=== PATIENT | female | born 1980 | race Caucasian/White ===

== ENCOUNTER 2020-03-12 10:08 | Outpatient (CLI) | payer OTHER, SELFPAY ==
[2020-03-12 10:28] LABS: Hematocrit 40.3 % (37.0-47.0); Hemoglobin 13.9 g/dL (12.0-15.0); Mean Corpuscular HGB Conc 34.5 g/dl (32-36); Mean Corpuscular Hemoglobin 35.9 pg (26-34); Mean Corpuscular Volume 104.1 fl (80-100); Mean Platelet Volume 9.8 fl (7.4-10.4); Platelet Count Result 210 k/mm3 (150-375); Red Blood Count 3.87 M/mm3 (4.2-5.4); Red Cell Distribution Width 11.5 % (11.5-14.5); White Blood Count 7.5 K/mm3 (4.5-10.0)
[2020-03-12 10:47] LABS: Alanine Aminotransferase 23 U/L (4-35); Albumin Level 4.6 g/dL (3.5-5.1); Alkaline Phosphatase 52 U/L (38-126); Anion Gap 9 mmol/L (8-16); Aspartate Amino Transferase 27 U/L (14-36); Blood Urea Nitrogen 13 mg/dL (7-17); Calcium 9.3 mg/dL (8.4-10.2); Carbon Dioxide 28 mmol/L (22-30); Chloride 102 mmol/L (98-107); Cholesterol 202 mg/dL (0-200); Estimated Glomerular Filt Rate > 60; Glucose 104 mg/dL (65-105); HDL Direct 73 mg/dL; Potassium 4.5 mmol/L (3.4-5.0); Sodium 139 mmol/L (137-145); Triglycerides 111 mg/dL (<150)
[2020-03-12 10:59] LABS: LDL Cholesterol Direct 110 mg/dL
[2020-03-12 11:54] LABS: Folic Acid > 20.0 ng/mL (2.76->20)
== END 2020-03-12 10:09 | disposition home or self-care (01) ==
PROVIDERS: PCP Physician Assistant; Visit Provider Physician Assistant
DX: E55.9 Vitamin D deficiency, unspecified (principal)
CPT/HCPCS: 36415; 80053; 80061; 82306; 82607; 82746; 84443; 85027

== ENCOUNTER 2020-11-24 12:53 | Outpatient (CLI) | payer OTHER, SELFPAY ==
--- NOTE | ~2020-11-24 | MMUS_ITS ---
EXAMINATION: MM diagnostic ramya BI w yamil, US axilla RT HISTORY: Palpable right axillary lump TECHNIQUE: Additional 3-D tomosynthesis images of the breasts were performed and synthetic 2-D images were generated. CAD analysis was submitted and interpreted. High resolution right axillary ultrasoun d was performed. COMPARISON: None BREAST PARENCHYMAL COMPOSITION: Breast composed of scattered areas of fibroglandular density FINDINGS: MAMMOGRAPHIC FINDINGS: There are no suspicious masses, calcifications or architectural distortion in either breast to sugges t malignancy. ULTRASOUND: Right axillary ultrasound: Normal heterogeneous echotexture without focal solid or cystic mass. IMPRESSION: 1. No evidence for malignancy in either breast. No right axillary abnormalities are identified. 2. Routine yearly screening mammogram and regular clinical breast examination are recommended. BI-RADS Category 1: Negative Reviewed, dictated and finalized at location A. IMPRESSION: 1. No evidence for malignancy in either breast. No right axillary abnormalities are identified. 2. Routine yearly screening mammogram and regular clinical breast examination a re recommended. BI-RADS Category 1: Negative
== END 2020-11-24 12:54 | disposition home or self-care (01) ==
LOC: ANHIMG 12:55
PROVIDERS: PCP Physician Assistant; Visit Provider Obstetrics & Gynecology
DX: M79.89 Other specified soft tissue disorders (principal); N63.10 Unspecified lump in the right breast, unspecified quadrant
CPT/HCPCS: 76882; 77062; 77066; G0279

== ENCOUNTER 2022-03-09 11:47 | Outpatient (CLI) | payer OTHER, SELFPAY ==
[2022-03-09 12:32] LABS: Influenza Control Positive
== END 2022-03-09 11:48 | disposition home or self-care (01) ==
LOC: ANHLAB 11:49
PROVIDERS: PCP Physician Assistant; Visit Provider Physician Assistant
DX: J02.9 Acute pharyngitis, unspecified (principal)
CPT/HCPCS: 87081; 87804; 87880

== ENCOUNTER 2022-03-21 09:21 | Outpatient (CLI) | payer OTHER, SELFPAY ==
[2022-03-21 09:54] LABS: Hematocrit 41.8 % (37.0-47.0); Hemoglobin 14.3 g/dL (12.0-15.0); Mean Corpuscular HGB Conc 34.2 g/dl (32-36); Mean Corpuscular Hemoglobin 35.8 pg (26-34); Mean Corpuscular Volume 104.5 fl (80-100); Mean Platelet Volume 9.3 fl (7.4-10.4); Platelet Count Result 277 k/mm3 (150-375); Red Cell Distribution Width 12.4 % (11.5-14.5); White Blood Count 7.8 K/mm3 (4.5-10.0)
[2022-03-21 10:18] LABS: Vitamin D 25 Hydroxy 36.5 ng/mL
[2022-03-21 11:06] LABS: Alanine Aminotransferase 23 U/L (6-35); Albumin Level 4.9 g/dL (3.5-5.1); Alkaline Phosphatase 85 U/L (38-126); Anion Gap 11 mmol/L (8-16); Aspartate Amino Transferase 33 U/L (14-36); Bilirubin,Total 0.8 mg/dL (0.2-1.3); Blood Urea Nitrogen 11 mg/dL (7-17); Calcium 9.5 mg/dL (8.4-10.2); Carbon Dioxide 28 mmol/L (22-30); Chloride 102 mmol/L (98-107); Cholesterol 274 mg/dL (0-200); Estimated Glomerular Filt Rate > 60; Glucose 88 mg/dL (65-110); LDL Cholesterol Direct 128 mg/dL; Potassium 3.9 mmol/L (3.4-5.0); Sodium 141 mmol/L (137-145); Triglycerides 91 mg/dL (<150)
[2022-03-21 12:04] LABS: Folic Acid > 20.0 ng/mL (2.76->20)
[2022-03-21 13:11] LABS: HDL Direct 114 mg/dL
== END 2022-03-21 09:22 | disposition home or self-care (01) ==
PROVIDERS: PCP Physician Assistant; Visit Provider Physician Assistant
DX: Z00.00 Encounter for general adult medical examination without abnormal findings (principal); E55.9 Vitamin D deficiency, unspecified
CPT/HCPCS: 36415; 80053; 80061; 82306; 82607; 82746; 84443; 85027

== ENCOUNTER 2023-09-29 07:48 | Outpatient (CLI) | payer OTHER, SELFPAY ==
--- NOTE | ~2023-09-29 | MM_ITS ---
EXAMINATION: MM screening ramya BI w yamil HISTORY: Screening mammogram TECHNIQUE: Craniocaudal and mediolateral oblique 3-D tomosynthesis images were obtained and synthetic 2-D images were generated. CAD analysis was submitted and interpreted. COMPARISON: 11/24/2020 bilateral screening mammogram BREAST PARENCHYMAL COMPOSITION: The breasts are almost entirely fatty. FINDINGS: There is no evidence of suspicious mass, calcification, or architectural distortion to sugg est malignancy in either breast. There has been no suspicious interval change. IMPRESSION: 1. No mammographic evidence of malignancy. 2. Recommend routine screening mammography in one year. BI-RADS Category 1: Negative Reviewed, dictated and finalized at location B.
== END 2023-09-29 07:49 | disposition home or self-care (01) ==
LOC: ANHIMG 07:51
PROVIDERS: PCP Physician Assistant; Visit Provider Obstetrics & Gynecology
DX: Z12.31 Encounter for screening mammogram for malignant neoplasm of breast (principal)
CPT/HCPCS: 77063; 77067

== ENCOUNTER 2024-09-16 12:58 | Outpatient (CLI) | payer OTHER, SELFPAY ==
--- OUTSIDE RECORDS SUMMARY | 2024-09-16 10:34 | XMS_ITS | Clinical Summary ---
Author Organization [facility] [place] [address] Address [address] [place] [phone] Care Team Providers Care Mental Health Orderly Name Role Phone Lyndon Abdi Primary Care Provider Allergies No known active allergies Medications labetaloL (NORMODYNE,GRULLON DATE) 100 mg tablet Take 1 tablet (100 mg total) by mouth 2 (two) times a day 2 Active sertraline (ZOLOFT) 50 mg tablet Take 1 tablet (50 mg total) by mouth daily 2 Active valACYclovir (VALTREX) 500 mg tablet Take 1 tablet (500 mg total) by mouth daily 2 Active guaiFENesin ER (MUCINEX) 600 mg 12 hr tablet Take 2 tablets (1,200 mg total) by mouth 2 (two) times a day Active fluticasone propionate (FLONASE) 50 mcg/actuation nasal spray Administer 1 spray into each nostril daily Active lisinopriL (PRINIVIL,ZESTR IL) 40 mg tablet Take 1 tablet (40 mg total) by mouth daily Active methylPREDNISol one (MEDROL DOSEPACK) 4 mg DosepackIndicat ions:Acute lower respiratory infection Take 6 tabs on day 1, reduce dose by 1 daily until prescription is complete. 1 packet 3 Active benzonatate (TESSALON) 200 mg capsuleIndicati ons:Acute lower respiratory infection Take 1 capsule (200 mg total) by mouth 3 (three) times a day as needed for cough keep tessalon out of reach of children, especially children under the age of 10, due to possible serious risk such as if ingested by children under the age of 10. 30 capsule 3 Active azithromycin (ZITHROMAX) 250 mg tablet Take 2 tabs (500 mg) by mouth today, than 1 tab (250 mg) daily for 4 days. 6 tablet 4 Active Active Problems No known active problems Social History Tobacco Use Types Packs/Day Years Used Date Smoking Tobacco: Never Assessed Comments Unknown Sex and Gender Information Value Date Recorded Sex Assigned at Not on file Legal Sex Female 9:34 AM CDT Gender Identity Not on file Sexual Orientation Not on file Obstetrics History Last Filed Vital Signs Vital Sign Reading Time Taken Comments Blood Pressure 138/92 04/02/2024 10:49 AM DISC PAD GRINDER Pulse 106 04/02/2024 10:49 AM DISC PAD GRINDER Temperature 37.1 C (98.7 F) 04/02/2024 10:49 AM DISC PAD GRINDER Respiratory Rate 20 04/02/2024 10:49 AM DISC PAD GRINDER Oxygen Saturation 97% 04/02/2024 10:49 AM DISC PAD GRINDER Inhaled Oxygen Concentration - - Weight 80.7 kg (178 lb) 04/02/2024 10:49 AM DISC PAD GRINDER Height 165.1 cm (5' 5) 04/02/2024 10:49 AM DISC PAD GRINDER Body Mass Index 29.62 04/02/2024 10:49 AM DISC PAD GRINDER Plan of Treatment Health Maintenance Due Date Last Done Comments Breast Cancer Screening-Mammogram 1981 Cervical Cancer Screening 1981 Depression Screening 1981 Hepatitis C Screening 1981 Varicella Vaccines (1 of 2 - 13+ 2-dose series) 1994 Hepatitis B Screening 11/11/1999 Regular Well Visit/Exam 18-64 11/11/1999 Covid-19 Vaccine ( season) 2024 04/22/2021, 06/26/2020, 05/28/2020 Influenza Vaccine (#1) 2024 , 01/28/2020, 02/14/2019, Additional history exists DTaP/Tdap/Td Vaccine (3 - Td or Tdap) 07/07/2026 07/07/2016, 08/28/2015 HPV Vaccines Aged Out No longer eligi ble based on patient's age to complete this topic Pneumococcal vaccine <65 Aged Out No longer eligible based on patient's age to complete this topic Insurance Member Subscriber Plan / Payer (Ef fective 2022-Present) Name:Nelida Hensley Relation to Subscriber:Self Name:Nelida Hensley Payer ID:[id number] (NAIC) Group ID:[id number] Type:CIGNA HMO/PPO Address: [address] [place] [address] CIGNA IBEW Member Subscriber Plan / Payer (Ef fective 2014-Present) Name:Nelida Hensley Relation to Subscriber:Self Name:Nelida Hensley Payer ID:[id number] (NAIC) Group ID:[id number] Type:CIGNA HMO/PPO Address: [address] [place] [address] Care Teams Mental Health Orderly Relationship Specialty Start Date End Date Lyndon Abdi PA [address] [facility] [address] [place] [phone] PCP - General Physician Bench Inspector 01/28/22
--- OUTSIDE RECORDS SUMMARY | 2024-09-16 10:34 | XMS_ITS | Referral Summary ---
Author Organization [facility] [address] Address [address] [place] [phone] Care Team Providers Care Tissue Recovery Technician Name Role Phone Lyndon Abdi Primary Care [...] on file Sexual Orientation Not on file Last Filed Vital Signs Vital Sign Reading Time Taken Comments Blood Pressure 138/92 04/02/2024 10:49 AM GRADUATE ASSISTANT ATHLETIC TRAINER Pulse 106 04/02/2024 10:49 AM GRADUATE ASSISTANT ATHLETIC TRAINER Temperature 37.1 C (98.7 F) 04/02/2024 10:49 AM GRADUATE ASSISTANT ATHLETIC TRAINER Respiratory Rate 20 04/02/2024 10:49 AM GRADUATE ASSISTANT ATHLETIC TRAINER Oxygen Saturation 97% 04/02/2024 10:49 AM GRADUATE ASSISTANT ATHLETIC TRAINER Inhaled Oxygen Concentration - - Weight 80.7 kg (178 lb) 04/02/2024 10:49 AM GRADUATE ASSISTANT ATHLETIC TRAINER Height 165.1 cm (5' 5) 04/02/2024 10:49 AM GRADUATE ASSISTANT ATHLETIC TRAINER Body Mass Index 29.62 04/02/2024 10:49 AM GRADUATE ASSISTANT ATHLETIC TRAINER Plan of Treatment Not on file Insurance ANGELA SUAREZ Member Subscriber Plan / Payer (Ef fective 2022-Present) Name:Nelida Hensley Relation to Subscriber:Self Name:Nelida Hensley Payer ID:[id number] (IC) Group ID:[id number] Type:ANGELA HMO/PPO Address: [facility] [address] [place] [address] ANGELA IBEW Member Subscriber Plan / Payer (Ef fective 2014-Present) Name:Nelida Hensley Relation to Subscriber:Self Name:Nelida Hensley Payer ID:[id number] (NA) Group ID:[id number] Type:ANGELA HMO/O Address: [facility] [id number] [place] [phone] Care Teams Tissue Recovery Technician Relationship Specialty Start Date End Date Lyndon Abdi PA [address] [facility] [address] [place] [address] PCP - General Physician Automotive Hardware Engineer 01/28/22
[2024-09-16 11:10] LABS: Basophils Percent Auto 0.6 % (0.2-1.2); Eosinophils Absolute Auto 0.1 K/mm3 (0-0.3); Hematocrit 38.2 % (37.0-47.0); Hemoglobin 12.8 g/dL (12.0-15.0); Immature Granulocyte Absolute 0.01 K/mm3 (0.00-0.031); Immature Granulocyte Percent A 0.2 % (0-0.5); Lymphocytes Absolute Auto 1.58 K/mm3 (0.9-3.2); Lymphocytes Percent Auto 31.5 % (18.3-44.2); Mean Corpuscular HGB Conc 33.5 g/dl (32-36); Mean Corpuscular Hemoglobin 35.8 pg (26-34); Mean Corpuscular Volume 106.7 fl (80-100); Mean Platelet Volume 9.6 fl (7.4-10.4); Monocytes Absolute Auto 0.4 K/mm3 (0.1-0.6); Monocytes Percent Auto 7.6 % (2.6-8.5); Neutrophils Percent Auto 59.1 % (45.5-73.1); Platelet Count Result 188 k/mm3 (150-375); Red Blood Count 3.58 M/mm3 (4.2-5.4)
[2024-09-16 11:27] LABS: Alanine Aminotransferase 34 U/L (6-35); Albumin Level 4.4 g/dL (3.5-5.1); Alkaline Phosphatase 62 U/L (38-126); Anion Gap 12 mmol/L (4-12); Aspartate Amino Transferase 61 U/L (14-36); Bilirubin,Total 0.5 mg/dL (0.2-1.3); Blood Urea Nitrogen 10 mg/dL (7-17); Calcium 9.1 mg/dL (8.4-10.2); Carbon Dioxide 26 mmol/L (22-30); Chloride 102 mmol/L (98-107); Cholesterol 223 mg/dL (0-200); Estimated Glomerular Filt Rate > 60; Glucose 77 mg/dL (65-110); HDL Direct 109 mg/dL; Potassium 3.8 mmol/L (3.4-5.0); Sodium 140 mmol/L (137-145); Triglycerides 121 mg/dL (<150)
[2024-09-16 11:38] LABS: LDL Cholesterol Direct 86 mg/dL
[2024-09-16 11:41] LABS: Burr Cells 1+; Macrocytosis 1+ (NORMAL); Platelet Estimate Adequate (Adequate); Schistocytes None Seen
[2024-09-16 12:03] LABS: Vitamin D 25 Hydroxy 44.7 ng/mL
--- OUTSIDE RECORDS SUMMARY | 2024-09-16 13:03 | XMS_ITS | Referral Summary ---
Author Organization [facility] [place] [address] Address [address] [place] [phone] Care Team Providers Care Planning Consultant Name Role Phone Lyndon Abdi Primary Care [...] Comments Blood Pressure 138/92 04/02/2024 10:49 AM SHORE MAN Pulse 106 04/02/2024 10:49 AM SHORE MAN Temperature 37.1 C (98.7 F) 04/02/2024 10:49 AM SHORE MAN Respiratory Rate 20 04/02/2024 10:49 AM SHORE MAN Oxygen Saturation 97% 04/02/2024 10:49 AM SHORE MAN Inhaled Oxygen Concentration - - Weight 80.7 kg (178 lb) 04/02/2024 10:49 AM SHORE MAN Height 165.1 cm (5' 5) 04/02/2024 10:49 AM SHORE MAN Body Mass Index 29.62 04/02/2024 10:49 AM SHORE MAN Plan of Treatment Not on file Insurance ANGELA SUAREZ Member Subscriber Plan / Payer (Ef fective 2022-Present) Name:Nelida Hensley Relation to Subscriber:Self Name:Nelida Hensley Payer ID:[id number] (IC) Group ID:[id number] Type:ANGELA HMO/PPO Address: [facility] [address] [place] [address] ANGELA IBEW Member Subscriber Plan / Payer (Ef fective 2014-Present) Name:Nelida Hensley Relation to Subscriber:Self Name:Nelida Hensley Payer ID:[id number] (NA) Group ID:[id number] Type:ANGELA HMO/O Address: [facility] [id number] [place] [phone] Care Teams Planning Consultant Relationship Specialty Start Date End Date Lyndon Abdi PA [address] [facility] [address] [place] [address] PCP - General Physician Fixed Capital Clerk 01/28/22
--- OUTSIDE RECORDS SUMMARY | 2024-09-16 13:03 | XMS_ITS | Clinical Summary ---
Author Organization [facility] [place] [address] Address [address] [place] [phone] Care Team Providers Care Spray Technician Name Role Phone Lyndon Abdi Primary [...] Comments Blood Pressure 138/92 04/02/2024 10:49 AM ELECTRONIC SECURITY TECHNICIAN Pulse 106 04/02/2024 10:49 AM ELECTRONIC SECURITY TECHNICIAN Temperature 37.1 C (98.7 F) 04/02/2024 10:49 AM ELECTRONIC SECURITY TECHNICIAN Respiratory Rate 20 04/02/2024 10:49 AM ELECTRONIC SECURITY TECHNICIAN Oxygen Saturation 97% 04/02/2024 10:49 AM ELECTRONIC SECURITY TECHNICIAN Inhaled Oxygen Concentration - - Weight 80.7 kg (178 lb) 04/02/2024 10:49 AM ELECTRONIC SECURITY TECHNICIAN Height 165.1 cm (5' 5) 04/02/2024 10:49 AM ELECTRONIC SECURITY TECHNICIAN Body Mass Index 29.62 04/02/2024 10:49 AM ELECTRONIC SECURITY TECHNICIAN Plan of Treatment Health Maintenance Due Date [...] Group ID:[id number] Type:CIGNA HMO/PPO Address: [address] [place] [address] CIGNA IBEW Member Subscriber Plan / Payer (Ef fective 2014-Present) Name:Nelida Hensley Relation to Subscriber:Self Name:Nelida Hensley Payer ID:[id number] (NAIC) Group ID:[id number] Type:CIGNA HMO/PPO Address: [address] [place] [address] Care Teams Spray Technician Relationship Specialty Start Date End Date Lyndon Abdi PA [address] [facility] [address] [place] [id number] PCP - General Physician Employment Manager 01/28/22
[2024-09-18 13:54] LABS: Red Blood Cell Folate 664 ng/mL RBC (>280)
== END 2024-09-16 12:59 | disposition home or self-care (01) ==
PROVIDERS: PCP Internal Medicine; Visit Provider Internal Medicine
DX: Z00.00 Encounter for general adult medical examination without abnormal findings (principal); E55.9 Vitamin D deficiency, unspecified; D75.89 Other specified diseases of blood and blood-forming organs
CPT/HCPCS: 36415; 80053; 80061; 82306; 82607; 82747; 84443; 85025

== ENCOUNTER 2024-11-12 09:54 | Outpatient (CLI) | payer OTHER, SELFPAY ==
--- OUTSIDE RECORDS SUMMARY | 2024-11-12 09:58 | XMS_ITS | Referral Summary ---
Author Organization [facility] [address] Address [address] [place] [phone] Care Team Providers Care Acute Care Physician Name Role Phone Lyndon Abdi Primary Care [...] Comments Blood Pressure 138/92 04/02/2024 10:49 AM AUTOMATION APPLICATION ENGINEER Pulse 106 04/02/2024 10:49 AM AUTOMATION APPLICATION ENGINEER Temperature 37.1 C (98.7 F) 04/02/2024 10:49 AM AUTOMATION APPLICATION ENGINEER Respiratory Rate 20 04/02/2024 10:49 AM AUTOMATION APPLICATION ENGINEER Oxygen Saturation 97% 04/02/2024 10:49 AM AUTOMATION APPLICATION ENGINEER Inhaled Oxygen Concentration - - Weight 80.7 kg (178 lb) 04/02/2024 10:49 AM AUTOMATION APPLICATION ENGINEER Height 165.1 cm (5' 5) 04/02/2024 10:49 AM AUTOMATION APPLICATION ENGINEER Body Mass Index 29.62 04/02/2024 10:49 AM AUTOMATION APPLICATION ENGINEER Plan of Treatment Not on file Insurance ANGELA SUAREZ Member Subscriber Plan / Payer (Ef fective 2022-Present) Name:Nelida Hensley Relation to Subscriber:Self Name:Nelida Hensley Payer ID:[id number] (IC) Group ID:[id number] Type:ANGELA HMO/PPO Address: [facility] [address] [place] [address] ANGELA IBEW Member Subscriber Plan / Payer (Ef fective 2014-Present) Name:Nelida Hensley Relation to Subscriber:Self Name:Nelida Hensley Payer ID:[id number] (NA) Group ID:[id number] Type:ANGELA HMO/O Address: [facility] [id number] [place] [phone] Care Teams Acute Care Physician Relationship Specialty Start Date End Date Lyndon Abdi PA [address] [facility] [address] [place] [address] PCP - General Physician Attending Anesthesiologist 01/28/22
--- OUTSIDE RECORDS SUMMARY | 2024-11-12 09:58 | XMS_ITS | Clinical Summary ---
Author Organization [facility] [place] [address] Address [address] [place] [phone] Care Team Providers Care Pottery Decoration Designer Name Role Phone Lyndon Abdi Primary Care [...] Comments Blood Pressure 138/92 04/02/2024 10:49 AM SUPERVISOR CHLORINE LIQUEFACTION Pulse 106 04/02/2024 10:49 AM SUPERVISOR CHLORINE LIQUEFACTION Temperature 37.1 C (98.7 F) 04/02/2024 10:49 AM SUPERVISOR CHLORINE LIQUEFACTION Respiratory Rate 20 04/02/2024 10:49 AM SUPERVISOR CHLORINE LIQUEFACTION Oxygen Saturation 97% 04/02/2024 10:49 AM SUPERVISOR CHLORINE LIQUEFACTION Inhaled Oxygen Concentration - - Weight 80.7 kg (178 lb) 04/02/2024 10:49 AM SUPERVISOR CHLORINE LIQUEFACTION Height 165.1 cm (5' 5) 04/02/2024 10:49 AM SUPERVISOR CHLORINE LIQUEFACTION Body Mass Index 29.62 04/02/2024 10:49 AM SUPERVISOR CHLORINE LIQUEFACTION Plan of Treatment Health Maintenance Due Date Last Done Comments Breast Cancer Screening-Mammogram 1981 Cervical Cancer Screening 1981 Depression Screening 1981 Hepatitis C Screening 1981 Varicella Vaccines (1 of 2 - 13+ 2-dose series) 1994 Hepatitis B Screening 11/11/1999 Regular Well Visit/Exam 18-64 11/11/1999 Covid-19 Vaccine ( season) 2024 04/22/2021, 06/26/2020, 05/28/2020 Influenza Vaccine (Season Ended) 2025 02/03/2021, 01/28/2020, 02/14/2019, Additional history exists DTaP/Tdap/Td Vaccine [...] Group ID:[id number] Type:CIGNA HMO/PPO Address: [address] [place] [address] CIGNA IBEW Member Subscriber Plan / Payer (Ef fective 2014-Present) Name:Nelida Hensley Relation to Subscriber:Self Name:Nelida Hensley Payer ID:[id number] (NAIC) Group ID:[id number] Type:CIGNA HMO/PPO Address: [address] [place] [address] Care Teams Pottery Decoration Designer Relationship Specialty Start Date End Date Lyndon Abdi PA [address] [facility] [address] [place] [phone] PCP - General Physician Die Attacher 01/28/22
--- NOTE | 2024-11-12 11:00 | NEURO_ITS ---
Impression: # Non-diabetic complains of left hand numbness ? # Left Carpal Tunnel Syndrome sensory more than motor of mild degree ? # No Ulnar Neuropathy ? # Normal Needle/ EMG exam Nerve Conduction Studies ?Stim Site NR Peak (ms) P-T Amp (?V) Site1 Site2 Delta-P (ms) Dist (cm) Dami (m/s) Right Median Anti Sensory (2-3nd Digit) Wrist ? 3.8 35.0 Wrist 2-3nd Digit 3.8 14.0 37 Wrist ? 4.1 72.8 Wrist 2-3nd Digit 3.8 14.0 37 Right Radial Anti Sensory (Base 1st Digit) Wrist ? 2.0 24.0 Wrist Base 1st Digit 2.0 0.0 Right Ulnar Anti Sensory (5th Digit) Wrist ? 2.6 60.6 Wrist 5th Digit 2.6 14.0 54 ?Stim Site NR Onset (ms) O-P Amp (mV) Site1 Site2 Delta-0 (ms) Dist (cm) Dami (m/s) Right Median Motor (Abd Poll Brev) Wrist ? 3.9 3.9 Elbow Wrist 4.9 27.0 55 Elbow ? 8.8 3.5 Right Ulnar Motor (Abd Dig Minimi) Wrist ? 2.5 7.4 A Elbow Wrist 4.9 31.0 63 A Elbow ? 7.4 6.5 B Elbow Wrist 3.2 21.0 66 B Elbow ? 5.7 7.1 Electromyography ?Side Muscle Nerve Root Ins Act Fibs Amp Dur Recrt Comment Right 1stDorInt Ulnar C8-T1 Nml Nml Nml Nml Nml Right Ext Indicis Radial (Post Int) C7-8 Nml Nml Nml Nml Nml Right Ext Digitorum Radial (Post Int) C7-8 Nml Nml Nml Nml Nml Right BrachioRad Radial C5-6 Nml Nml Nml Nml Nml Right PronatorTeres Median C6-7 Nml Nml Nml Nml Nml Right Abd Poll Brev Median C8-T1 Nml Nml Nml Nml Nml Right ABD Dig Min Ulnar C8-T1 Nml Nml Nml Nml Nml Right FlexPolLong Median (Ant Int) C7-8 Nml Nml Nml Nml Nml Right Abd Poll Long Radial (Post Int) C7-8 Nml Nml Nml Nml Nml
== END 2024-11-12 09:55 | disposition home or self-care (01) ==
PROVIDERS: PCP Internal Medicine; Visit Provider Internal Medicine
DX: R20.2 Paresthesia of skin (principal); G56.02 Carpal tunnel syndrome, left upper limb
CPT/HCPCS: 95886; 95909

== ENCOUNTER 2025-01-29 09:53 | Outpatient (CLI) | payer OTHER, SELFPAY ==
--- NOTE | ~2025-01-29 | MM_ITS ---
EXAMINATION: MM screening ramya BI w yamil HISTORY: Screening TECHNIQUE: Craniocaudal and mediolateral oblique 3-D tomosynthesis images were obtained and synthetic 2-D images were generated. CAD analysis was submitted and interpreted. COMPARISON: 09/29/2023 BREAST PARENCHYMAL COMPOSITION: Not Dense: The breasts are almost entirely fatty. FINDINGS: There is no evidence of suspicious mass, calcification, or architectural distortion to suggest malignancy in either breast. [There has been no significant interval change. IMPRESSION: 1. No mammographic evidence of malignancy. Recommend routine screening mammography in one year. BI-RADS Category 1: Negative Reviewed, dictated, and finalized at Location A. Reviewed, dictated and finalized at location Q. IMPRESSION: 1. No mammographic evidence of malignancy. Recommend routine screening mammogra phy in one year. BI-RADS Category 1: Negative
--- OUTSIDE RECORDS SUMMARY | 2025-01-29 10:45 | XMS_ITS | Clinical Summary ---
Author Organization [facility] [place] [address] Address [address] [place] [phone] Care Team Providers Care Television Technician Name Role Phone Lyndon Abdi Primary [...] Comments Blood Pressure 138/92 04/02/2024 10:49 AM MATTRESS RENOVATOR Pulse 106 04/02/2024 10:49 AM MATTRESS RENOVATOR Temperature 37.1 C (98.7 F) 04/02/2024 10:49 AM MATTRESS RENOVATOR Respiratory Rate 20 04/02/2024 10:49 AM MATTRESS RENOVATOR Oxygen Saturation 97% 04/02/2024 10:49 AM MATTRESS RENOVATOR Inhaled Oxygen Concentration - - Weight 80.7 kg (178 lb) 04/02/2024 10:49 AM MATTRESS RENOVATOR Height 165.1 cm (5' 5) 04/02/2024 10:49 AM MATTRESS RENOVATOR Body Mass Index 29.62 04/02/2024 10:49 AM MATTRESS RENOVATOR Plan of Treatment Health Maintenance Due Date Last Done Comments Breast Cancer Screening-Mammogram 1981 Cervical Cancer Screening 1981 Depression Screening 1981 Hepatitis C Screening 1981 Varicella Vaccines (1 of 2 - 13+ 2-dose series) 1994 Hepatitis B Screening 11/11/1999 Regular Well Visit/Exam 18-64 11/11/1999 HPV Vaccines (1 - 3-dose SCDM series) 2008 Covid-19 Vaccine ( season) 2025 04/22/2021, 06/26/2020, 05/28/2020 Influenza Vaccine (#1) 2025 , 01/28/2020, 02/14/2019, Additional history exists DTaP/Tdap/Td Vaccine (3 - Td or Tdap) 07/07/2026 07/07/2016, 08/28/2015 Pneumococcal vaccine <65 Aged Out No longer eligible based on patient's age to complete this topic Insurance Member Subscriber Plan / Payer (Ef fective 2022-Present) Name:Nelida Hensley Relation to Subscriber:Self Name:Nelida Hensley Payer ID:[id number] (NAIC) Group ID:[id number] Type:CIGNA HMO/PPO Address: [address] [place] [address] CIGNA IBEW Member Subscriber Plan / Payer ( fective 2014-Present) Name:Nelida Hensley Relation to Subscriber:Self Name:Nelida Hensley Payer ID:[id number] (NAIC) Group ID:[id number] Type:CIGNA HMO/PPO Address: [address] [place] [address] Care Teams Television Technician Relationship Specialty Start Date End Date Lyndno Abdi PA [address] [facility] [address] [place] [id number] PCP - General Physician Operations Analyst 01/28/22
== END 2025-01-29 09:54 | disposition home or self-care (01) ==
LOC: ANHFOHIMG 09:55
PROVIDERS: PCP Internal Medicine; Visit Provider Obstetrics & Gynecology
DX: Z12.31 Encounter for screening mammogram for malignant neoplasm of breast (principal)
CPT/HCPCS: 77063; 77067

== ENCOUNTER 2025-04-10 06:29 | Day surgery (SDC) | payer OTHER, SELFPAY ==
--- NOTE | 2025-04-10 06:50 | P.OP_ITS ---
Procedure Note - Detailed Date of Procedure 04/10/25 Pre-op Diagnosis Right Carpal and Cubital Tunnel Syndrome Post-op Diagnosis Same Procedure Performed right ectr and CuTR Surgeon Lilly Elizalde MD [place] Master yaw patiño pa-c Anesthesia MAC Description of Procedure INFORMED CONSENT: The patient was seen and examined and marked in the pre-op area.? The patient signed the consent form. PROCEDURE IN DETAIL:The patient taken back to OR on the stretcher in supine position. Time out performed with anesthesia, surgeon and staff agreeing on patient's name site and surgery to be performed SCDs were placed on the lower extremities and inflated. A tourniquet was placed on {right} upper extremity and antibiotics given IV After anesthesia administered sedation I injected {10}cc 1%lido with epi and 0.5% marcaine plain at the operative sites The?{right upper extremity}?was prepped and draped in sterile fashion the??{right upper extremity} was? exsanguinated with Esmarch bandage and tourniquet inflated to 250mmHg I made a transverse incision in the {right} volar distal wrist crease through skin and dermis with 15 blade scalpel.? Littler scissors spread down to antebrachial fascia. A small incision was made in antebrachial fascia allowing access to Carpal tunnel. I proceeded with sequential dilation staying in line with the ring finger and hugging the hook of the hamate.? I then used the synovial elevator to free any adhesions from the underside of the transverse carpal ligament. Next I was able to insert the Microaire endoscopic carpal tunnel device with direct visualization of the transverse fibers on the monitor and proceeded with complete segmental retrograde release of the ligament in its entirety.? I irrigated with normal saline and closed with 4-0 monocryl for dermis and subcuticular closure. I next proceeded with making a longitudinal incision between two heads for flexor carpi ulnaris at end of {right} cubital tunnel with 15 blade scalpel.? Littler scissors were used to spread down to FCU fascia.? An incision was made in FCU fascia and ulnar nerve identified exiting cubital tunnel.? I proceeded with complete retrograde release of the cubital tunnel including 7cm proximal for the intermuscular septum.? The nerve appeared healthy with visible vaso nervorum.? There was no subluxation on full elbow range of motion. ? I irrigated with normal saline and closure with 3-0 vicryl and 4-0 monocryl. The incisions were covered with Dermabond then 4x4s, zhane, and a posterior elbow and volar wrist splint for patient safety, security and comfort and secured with alverto bandages after the tourniquet was let down noting the hand was warm and well perfused.? Patient awaken from anesthesia and transferred to recovery in stable condition Complications - none EBL- 1cc Disposition - home in stable condition Yaw Patiño PA-C was essential for positioning, retraction, closure and dressing placement. [facility] [place] Surgery - Charge Forward: Surgery Billing ([id number] same for yaw adding )
--- NOTE | 2025-04-10 06:50 | WPDHPUPDATE1 ---
History and Physical Update Update Date/Time: 04/10/25 06:50 Patient seen and examined in pre-operative holding area. No interval change in medical history or symptoms. Patient recalls previous discussion of benefits and alternatives to procedure. Continues to desire to proceed with right endoscopic possible open carpal tunnel release and right cubital tunnel release. Reviewed procedure, post-op expectations and risks including but not limited to bleeding, infection, injury to tendon/nerve/vessel, decreased hand function, stiffness, RSD, no change or worsening of symptoms. I discussed the possible use of assistants and their participation in the case. Patient stated understanding and signed the consent form wishing to proceed.
[2025-04-10 07:10] VITALS: BP 126/96; PULSE 88; RESP 16; TEMP 37.2; O2SAT 96
[2025-04-10] MEDS: ACETAMINOPHEN 500 MG TABLET 1000 MG PO (07:17)
[2025-04-10] MEDS: LACTATED RINGERS 1,000 ML 30 ML IV CONT ×2 (07:19→08:32)
--- NOTE | 2025-04-10 07:54 | P.PNAN_ITS ---
Anes - Initial Pre Proc Eval Procedure: Operation Date: 04/10/25 08:15 Proposed Procedures p Right Endoscopic Carpal Tunnel Release, Possible Open Carpal Tunnel Release - Lilly Elizalde MD s Right Cubital Tunnel Release - Lilly Elizalde MD Date/Time: 04/10/25 07:54 Surgeon: Lilly Elizalde MD Pre Op Diagnosis: Right Carpal and Cubital Tunnel Syndrome Patient Data Age: 44 Gender: F Height: 1.65 m Weight: 80.9 kg Last Vital Signs Temp 99 F 04/10/25 07:10 Pulse 88 04/10/25 07:10 Resp 16 04/10/25 07:10 BP 126/96 H 04/10/25 07:10 Pulse Ox 96 04/10/25 07:10 O2 Del Method Room Air 04/10/25 07:10 Allergies Allergy/AdvReac Type Severity Reaction Status Date / Time No Known Allergies Allergy Verified 04/10/25 07:08 Home Medications ?Medication ?Instructions ?Recorded ?Confirmed ?Type mesalamine 1,000 mg rectal 1 g RECTAL DAILY PRN ulcera tive 03/12/20 04/10/25 Rx suppository ([facility]asa) colitis #30 ea valacyclovir 500 mg tablet 500 mg PO DAILY 03/12/20 History (Valtrex) yrarghhjglrh-Iz-hfct-minerals 1 tablet PO DAILY 04/10/25 History lisinopril 40 mg tablet 40 mg PO DAILY 07/01/2408/30 History sertraline 50 mg tablet 50 mg PO DAILY #90 tabs 03/0804/10/25 Rx fluticasone propionate 50 2 spray intranasal DAILY PRN nasal 03/28/25 04/10/25 History mcg/actuation nasal congestion spray,suspension (24 Hour Allergy Relief) spironolactone 100 mg tablet 100 mg PO DAILY 03/28/25 04/10/25 History tretinoin 0.025 % topical cream 1 applic topical QHS P RN acne 03/28/25 04/10/25 History Patient hx anesthesia problems: none Family hx anesthesia problems: none Results Review: All pre-operative results and documents have been reviewed as part of the pre- operative evaluation. [facility] Past Medical History Medical History Ulcerative colitis Family History Family History Mother Family history of malignant neoplasm of thyroid Father Patient's father is in good health Grandparent Acute myocardial infarction Family history of Alzheimer's disease Family history of malignant neoplasm of breast Social History Social History Smoking status: Never smoker Second hand tobacco smoke exposure: No Alcohol intake: current Drinks per week: 5 Substance use: never Substance use type: does not use Lack of Transportation: No Lack of Food: Never True Current Housing: I Have Housing Concerned About Future Housing: No Difficulty Paying Gas/Electric Bills: No Difficulty Paying for Meds: No Currently Unemployed: No Education: Associate Degree Difficulty w/ Childcare or Family Care: No Living arrangements: with family Additional living arrangements comments: AND SON Spiritual care concerns: No Anes - Eval Final PreProcedure Day of Procedure 04/10/25 07:54 Heart: regular rate and rhythm Lungs: clear to auscultation Airway: Mallampati scale class II Neurological: alert and oriented Last oral intake: >/= 8 hours ASA classification: II Anesthetic plan: proceed Anesthesia type and monitoring: general Results Review: All pre-operative results and documents have been reviewed as part of the pre-operative evaluation. Informed Consent: The patient's anesthetic plan and its attendant risks and benefits were discussed with the patient/family/POA. Questions were solicited and answers provided to the satisfaction of the patient/family/POA.
[2025-04-10] MEDS: ceFAZolin SODIUM 2 GM/20 ML SW SYRINGE IV PUSH (08:15)
[2025-04-10] MEDS: BUPivacaine HCL 0.5% 10 ML AMP INFILTRATE (08:34)
[2025-04-10] MEDS: LIDO 1%/EPINEPHRINE 1:100,000 20 ML VIAL 10 ML INFILTRATE (08:34)
[2025-04-10 08:47] VITALS: BP 119/67; PULSE 120; RESP 16; O2SAT 97
[2025-04-10 08:57] VITALS: BP 127/83; PULSE 124; RESP 16; O2SAT 96
[2025-04-10 09:07] VITALS: BP 121/90; PULSE 110; RESP 16; O2SAT 95
== END 2025-04-10 09:24 | disposition home or self-care (01) ==
PROVIDERS: PCP Internal Medicine; Visit Provider Plastic Surgery
PROC: 01N54ZZ Release Median Nerve, Percutaneous Endoscopic Approach (ICD-10-PCS; CPT 29848; principal; 2025-04-10 08:15)
PROC: (CPT 64718; 2025-04-10 08:15)
DX: G56.01 Carpal tunnel syndrome, right upper limb (principal); G56.21 Lesion of ulnar nerve, right upper limb
CPT/HCPCS: 29848; 64718